=== PATIENT | male | born 1955 | race Caucasian/White ===

== ENCOUNTER → 2018-02-19 | Outpatient (CLI) | payer OTHER ==
[2014-10-11 14:02] VITALS: BMI 31.5
[~2018-02-19] MED LIST: ALL300 PO; ALLO-119 PO; AMLO-476 PO; ASPI-274 PO; ASPI81TA94 PO; FEN145 *; IBU200 PO; LEVO50TA86 PO; LEVO75TA73 PO; MULT-1335 PO; MULT-865 PO; OXYC-865 PO; PRA20 PO; PRAV20TA65 PO; PRAV40TA78 PO; TRILI135PT PO; VALS1TAB67 PO; VALS1TAB96 PO
[2018-02-19 08:03] LABS: PLATELET COUNT, AUTOMATED 195 K/uL (150-450)
[2018-02-19 08:42] LABS: LDL CHOLESTEROL 65 mg/dl
== END ==
LOC: LAB 07:43
PROVIDERS: ATTEND Internal Medicine
DX: E03.9 Hypothyroidism, unspecified (principal); E78.5 Hyperlipidemia, unspecified; I10 Essential (primary) hypertension; M10.9 Gout, unspecified
CPT/HCPCS: 36415; 81001; 82040; 82247; 82310; 82374; 82435; 82465; 82565; 82947; 83718; 84075; 84132; 84153; 84155; 84295; 84443; 84450; 84460; 84478; 84520; 84550; 85025